=== PATIENT | male | born 1995 | race African-American/Black ===

== ENCOUNTER 2021-04-30 05:17 | Emergency (ER) | payer MEDICAID ==
[~2021-04-30] VITALS: Ht 185.4 cm; Wt 66.4 kg
[2021-04-30] MEDS ORDERED: IBUP-2029 MT (05:56)
[2021-04-30] MEDS ORDERED: AMOX-494 MT (05:56)
[2021-04-30 06:14] VITALS: BP 127/78
== END 2021-04-30 07:08 | disposition home or self-care (01) ==
LOC: ER 05:17
DX: K02.9 Dental caries, unspecified (principal)
CPT/HCPCS: 99283

== ENCOUNTER 2021-07-16 02:21 | Emergency (ER) | payer MEDICAID ==
[~2021-07-16] VITALS: Ht 185.4 cm; Wt 72.0 kg
[~2021-07-16 02:21] MED LIST: AMOX-494 MT; IBUP-2029 MT
[2021-07-16 02:28] VITALS: BP 138/92
[2021-07-16] MEDS ORDERED: T3 PO (02:39)
[2021-07-16] MEDS ORDERED: IBUP-2029 MT (02:39)
[2021-07-16] MEDS ORDERED: BENZ11.95 TOP (02:39)
[2021-07-16] MEDS ORDERED: PENI500T MT (02:43)
[2021-07-16] MEDS ORDERED: HYDROCODONE/ACETAMINOPHEN 5/325MG TABLET PO ONE (02:45)
== END 2021-07-16 02:47 | disposition home or self-care (01) ==
LOC: ER 02:21
DX: K04.01 Reversible pulpitis (principal)
CPT/HCPCS: 99283

== ENCOUNTER 2021-12-28 08:07 | Emergency (ER) | payer MEDICAID ==
[~2021-12-28] VITALS: Ht 185.4 cm; Wt 68.0 kg
[~2021-12-28 08:07] MED LIST changes: +BENZ11.95 TOP; +PENI500T MT; +T3 PO
[2021-12-28 08:19] VITALS: BP 141/91
== END 2021-12-28 12:24 | disposition left against medical advice (07) ==
LOC: ER 09:32
DX: Z53.21 Procedure and treatment not carried out due to patient leaving prior to being seen by health care provider (principal)
CPT/HCPCS: 99281

== ENCOUNTER 2023-03-27 23:15 | Emergency (ER) | payer MEDICAID ==
[~2023-03-27] VITALS: Ht 185.4 cm; Wt 73.0 kg
[2023-03-27 23:44] VITALS: TEMP 99.2; O2SAT 100
[2023-03-28] MEDS ORDERED: KETOROLAC 60MG/2ML VIAL IM STA (00:09)
[2023-03-28] MEDS ORDERED: ACETAMINOPHEN WITH CODEINE 300/30MG TABLET PO NR (00:19)
[2023-03-28] MEDS ORDERED: AMOX1TAB16 MT (00:23)
[2023-03-28] MEDS ORDERED: IBUP-2030 PO (00:23)
[2023-03-28] MEDS ORDERED: T3 PO (00:23)
[2023-03-28 01:27] VITALS: BP 142/93; PULSE 74; RESP 12
[2023-03-28] MEDS ORDERED: IBUP-2029 MT (05:57)
[2023-03-28] MEDS ORDERED: FAMO-135 MT (05:57)
[2023-03-28] MEDS ORDERED: ACET-2708 MT (05:57)
== END 2023-03-28 04:05 | disposition left against medical advice (07) ==
LOC: ER 03-28 03:26
DX: K04.7 Periapical abscess without sinus (principal)
CPT/HCPCS: 99283; J1885

== ENCOUNTER 2023-03-28 02:07 | Emergency (ER) | payer MEDICAID ==
[~2023-03-28] VITALS: Ht 177.8 cm; Wt 70.0 kg
[~2023-03-28 02:07] MED LIST changes: +AMOX1TAB16 MT; +IBUP-2030 PO
[2023-03-28 02:29] VITALS: O2SAT 100
[2023-03-28] MEDS ORDERED: FAMO-135 MT (05:57)
[2023-03-28] MEDS ORDERED: IBUP-2029 MT (05:57)
[2023-03-28] MEDS ORDERED: ACET-2708 MT (05:57)
[2023-03-28] MEDS ORDERED: KETOROLAC 60MG/2ML VIAL IM ONE (06:00)
[2023-03-28 06:06] VITALS: BP 148/72
[2023-03-28 06:29] VITALS: PULSE 98; RESP 14; TEMP 98.4
== END 2023-03-28 06:32 | disposition home or self-care (01) ==
LOC: ER 03:19
DX: K08.89 Other specified disorders of teeth and supporting structures (principal)
CPT/HCPCS: 99283; 96372; J1885

== ENCOUNTER 2023-09-10 01:29 | Emergency (ER) | payer MEDICAID ==
[~2023-09-10] VITALS: Ht 185.4 cm; Wt 72.5 kg
[~2023-09-10 01:29] MED LIST changes: +ACET-2708 MT; +FAMO-135 MT
[2023-09-10 02:01] VITALS: BP 131/89; TEMP 97.5; O2SAT 70
[2023-09-10 02:02] VITALS: PULSE 75; RESP 18
[2023-09-10] MEDS ORDERED: AZIT250T12 MT (05:58)
[2023-09-10] MEDS ORDERED: P20 PO (05:58)
== END 2023-09-10 06:58 | disposition home or self-care (01) ==
LOC: ER 01:29
DX: J06.9 Acute upper respiratory infection, unspecified (principal)
CPT/HCPCS: 71045; 99283

== ENCOUNTER 2024-06-10 02:43 | Emergency (ER) | payer MEDICAID ==
[~2024-06-10] VITALS: Ht 180.3 cm; Wt 70.1 kg
[~2024-06-10 02:43] MED LIST changes: +AZIT250T12 MT; +P20 PO
[2024-06-10 03:07] VITALS: O2SAT 99
[2024-06-10] MEDS: KETOROLAC 15MG/ML VIAL IM ONE (03:52)
[2024-06-10] MEDS ORDERED: DIPHENHYDRAMINE 25MG CAPSULE PO ONE (04:00)
[2024-06-10] MEDS ORDERED: FAMOTIDINE 20MG TABLET PO ONE (04:00)
[2024-06-10] MEDS ORDERED: FAMO-135 MT (05:13)
[2024-06-10] MEDS: DIPHENHYDRAMINE 25MG CAPSULE PO NR (05:15)
[2024-06-10] MEDS: FAMOTIDINE 20MG TABLET PO NR (05:15)
[2024-06-10] MEDS ORDERED: AMOX1TAB16 MT (05:47)
[2024-06-10 05:50] VITALS: BP 130/89; PULSE 71; RESP 20; TEMP 36.66960; O2SAT 100
== END 2024-06-10 05:51 ==
LOC: ER 03:15
DX: K04.7 Periapical abscess without sinus (principal); T78.40XA Allergy, unspecified, initial encounter; Z79.899 Other long term (current) drug therapy; X58.XXXA Exposure to other specified factors, initial encounter
CPT/HCPCS: 71045; 96372; 99283; Q0163; J1885; Z7610

== ENCOUNTER 2024-06-12 05:18 | Emergency (ER) | payer MEDICAID ==
[~2024-06-12] VITALS: Ht 172.7 cm; Wt 69.0 kg
[2024-06-12 05:42] VITALS: BP 108/63; PULSE 80; TEMP 97.9; O2SAT 97; O2SAT 99
[2024-06-12] MEDS ORDERED: DIPHENHYDRAMINE 50MG CAPSULE PO ONE (06:00)
[2024-06-12] MEDS ORDERED: NAPR-681 MT (06:05)
[2024-06-12] MEDS ORDERED: CLIN-194 MT (06:05)
[2024-06-12 06:15] VITALS: RESP 18
[2024-06-12] MEDS: DIPHENHYDRAMINE 25MG CAPSULE PO NR (06:32)
[2024-06-12] MEDS: IBUPROFEN 600MG TABLET PO ONE (06:32)
== END 2024-06-12 06:35 | disposition home or self-care (01) ==
LOC: ER 05:34
DX: K02.9 Dental caries, unspecified (principal); Z79.899 Other long term (current) drug therapy; Z88.0 Allergy status to penicillin
CPT/HCPCS: 99283; Q0163